=== PATIENT | female | born 1985 | race Caucasian/White ===

== ENCOUNTER 2016-05-13 13:52 | Emergency (ER) | payer OTHER ==
--- NOTE | 2016-05-13 14:20 | DIAGNOSTIC IMAGING REPORT ---
PROCEDURE: CT HEAD WITHOUT CONTRAST INDICATION: TRAUMA/INJURY TECHNIQUE: Axial CT images were acquired through the head. Coronal and sagittal reformations were created. COMPARISON: None. FINDINGS: No intracranial hemorrhage or extraaxial fluid collections. Ventricles are normal in size, shape and position. There is no mass, mass effect or midline shift. The de luna-white matter differentiation is normal. There is no edema. The calvarium is intact. There is some fluid in the ethmoid sinuses. The extracranial soft tissues and orbits are normal. IMPRESSION: 1. No CT evidence of acute intracranial process. 2. Findings discussed with Benjamin at 02:[address] scans at this facility use dose modulation, iterative reconstruction, and/or weight-based dosing when appropriate to reduce radiation dose to as low as reasonably achievable.
--- NOTE | 2016-05-13 15:42 | DIAGNOSTIC IMAGING REPORT ---
PROCEDURE: XR THORACIC SPINE 2 VIEWS INDICATION: TRAUMA/INJURY TECHNIQUE: Three views. COMPARISON: None. FINDINGS: Osseous structures and disc spaces are normal. No evidence of an acute process or fracture. IMPRESSION: 1. Negative thoracic spine.
--- NOTE | 2016-05-13 15:42 | DIAGNOSTIC IMAGING REPORT ---
PROCEDURE: XR LUMBAR SPINE 2 OR 3 VIEWS INDICATION: TRAUMA/INJURY TECHNIQUE: Three views. COMPARISON: None. FINDINGS: Osseous structures and disc spaces are normal. No evidence of an acute process or fracture. IMPRESSION: 1. Negative lumbar spine.
--- NOTE | 2016-05-13 15:43 | DIAGNOSTIC IMAGING REPORT ---
PROCEDURE: XR CERVICAL SPINE 2 OR 3 VIEW INDICATION: NECK PAIN TECHNIQUE: Three views. COMPARISON: None. FINDINGS: Osseous structures and disc spaces are normal. No evidence of an acute process or fracture. IMPRESSION: 1. Negative cervical spine.
--- NOTE | 2016-05-13 15:47 | DIAGNOSTIC IMAGING REPORT ---
PROCEDURE: XR PELVIS 3 OR MORE VIEWS INDICATION: TRAUMA/INJURY TECHNIQUE: Three views COMPARISON: None. FINDINGS: On the left there is a fracture of the superior pubic ramus and the inferior pubic ramus. The superior fracture is comminuted. IMPRESSION: 1. Left-sided pubic rami fractures
--- NOTE | 2016-05-13 16:31 | ED ORDER SUMMARY ---
..... Patient: GLADIS CHÁVEZ OrderSheet [facility] VisitID: [id number] [address] [place] [address] 30y, F Registration Date/Time: 05/13/2016 ORDER SHEET Weight: 54.4 kg (stated) Allergies: None GENERAL ORDERS: Cervical Spine 2 or 3V Urgent (14:00 05/13/2016 EKoroleva P.A.-C) (Ack 14:05 LTapper) (14:13 DMaziarka R.N.) Hip 2V Left w AP Pelvis Urgent (14:00 05/13/2016 EKoroleva P.A.-C) (Ack 14:05 LTapper) (14:13 DMaziarka R.N.) (Cancelled: Other14:44 PHutchinson DO) CT Head wo Cont Urgent (14:00 05/13/2016 EKoroleva P.A.-C) (Ack 14:05 LTapper) (14:14 DMaziarka R.N.) CBC w Diff Urgent (14:03 05/13/2016 EKoroleva P.A.-C) (Ack 14:05 LTapper) (14:06 KWilliams R.N.) CMP Urgent (14:03 05/13/2016 EKoroleva P.A.-C) (Ack 14:05 LTapper) (14:06 KWilliams R.N.) CPK Urgent (14:03 05/13/2016 EKoroleva P.A.-C) (Ack 14:05 LTapper) (14:06 KWilliams R.N.) Pelvis 3V or more Urgent (14:44 05/13/2016 PHutchinson DO) (Ack 14:53 LTapper) (15:44 DMaziarka R.N.) CT Pelvis w Cont (14:46 05/13/2016 EKoroleva P.A.-C) (Cancelled: Other14:47 EKoroleva P.A.-C) UA-Culture if indicated Urgent (14:51 05/13/2016 EKoroleva P.A.-C) (Ack 14:53 LTapper) (15:13 DMaziarka R.N.) CT Pelvis wo Cont Urgent (14:52 05/13/2016 EKoroleva P.A.-C) (Ack 14:53 LTapper) (15:44 DMaziarka R.N.) (Cancelled: Other16:31 EKoroleva P.A.-C) Lumbar Spine 2 or 3V Urgent (14:58 05/13/2016 EKoroleva P.A.-C) (Ack 15:01 LTapper) (15:44 DMaziarka R.N.) Thoracic Spine 2V Urgent (14:58 05/13/2016 EKoroleva P.A.-C) (Ack 15:01 LTapper) (15:44 DMaziarka R.N.) Urine Drug Screen Urgent (14:58 05/13/2016 EKoroleva P.A.-C) (Ack 15:01 LTapper) (15:13 DMaziarka R.N.) Ethyl Alcohol Urgent (14:58 05/13/2016 EKoroleva P.A.-C) (Ack 15:01 LTapper) (15:13 DMaziarka R.N.) Acetaminophen Level Urgent (14:58 05/13/2016 EKoroleva P.A.-C) (Ack 15:01 LTapper) (15:13 DMaziarka R.N.) Salicylate Level Urgent (14:58 05/13/2016 EKoroleva P.A.-C) (Ack 15:01 LTapper) (15:13 DMaziarka R.N.) Urine Urgent (14:59 05/13/2016 EKoroleva P.A.-C) (Ack 15:01 LTapper) (15:13 DMaziarka R.N.) EKG - ER Stat (15:35 05/13/2016 EKoroleva P.A.-C) (Ack 15:47 LTapper) (16:12 LTapper) Troponin-I Urgent (15:35 05/13/2016 EKoroleva P.A.-C) (15:44 DMaziarka R.N.) PT with INR Urgent (16:26 05/13/2016 EKoroleva P.A.-C) (16:40 DMaziarka R.N.) PTT Urgent (16:26 05/13/2016 EKoroleva P.A.-C) (16:40 DMaziarka R.N.) MEDICATION ORDERS: Phenergan IV 12.5 mg (HIGH ALERT MEDICATION, NOW) (14:03 05/13/2016 EKoroleva P.A.-C) (Ack 14:15 JBoardley R.N.) (14:36 DMaziarka R.N.) IV FLUIDS: Dilaudid IV 0.5 mg (HIGH ALERT MEDICATION, NOW) (14:02 05/13/2016 EKoroleva P.A.-C) (Ack 14:15 JBoardley R.N.) (14:35 DMaziarka R.N.) IV Saline Lock (14:03 05/13/2016 EKoroleva P.A.-C) (Ack 14:03 JBoardley R.N.) (14:03 JBoardley R.N.) Dilaudid IV 1 mg (HIGH ALERT MEDICATION, NOW) (14:54 05/13/2016 EKoroleva P.A.-C) (15:03 DMaziarka R.N.) IV NS : initial bolus 1000 mL (1000 mL/hr), then 1000 mL/hr for X1 (NOW); Quinton (15:34 05/13/2016 EKoroleva P.A.-C) (15:51 DMaziarka R.N.) KCl IV 20 meq/100mL (Run no faster than 10 units/hr, NOW) (15:34 05/13/2016 EKoroleva P.A.-C) (Ack 15:52 DMaziarka R.N.) (16:02 DMaziarka R.N.) Dilaudid IV 0.5 mg (HIGH ALERT MEDICATION, NOW) (17:04 05/13/2016 EKoroleva P.A.-C) (17:11 KWilliams R.N.) ORDER SHEET NOTES: [Electronically signed by Yodit AlexanderACuba-C (17:56 05/13/2016)] [Electronically signed by Britany Guan R.N. (18:05/13/2016)] [Electronically locked/signed by Britany Guan R.N. (18:05/13/2016)]
--- NOTE | 2016-05-13 16:31 | ED CLINICAL REPORT ---
Clinical Report - Physicians/Mid Levels [facility] [address] [place] [address] 05/13/2016 13:54 [id number] Time Seen: 14:09 May 13 2016. Arrived- By private vehicle. Historian- patient. HISTORY OF PRESENT ILLNESS Location of injuries- head and left hip. Chief Complaint: FALL. The injury occurred last night 12 hours [employer]. Occurred at home. Fell down many stairs while standing and landed on a carpeted surface (14 stairs). The patient complains of mild pain and moderate pain. The patient sustained a blow to the head. No neck pain or loss of consciousness. (sipped at the top of the stairs, fell down, backwards, hitting her head as well as sustaining injury to her left hip. Has been laying on couch after being picked up by her family member, placed on the couch and has been laying there for the last 12 hours. Injury to the left hip. Denies any abdominal or chest wall pain. Denies any back pain. Denies any paresthesias or loss of sensation. Denies any LOC. Pt does not recall event, Family rushed after hearing the fall and picked her up to the floor. NO known LOC by family members). REVIEW OF SYSTEMS No loss of vision, chest pain or laceration. She has had a headache. All systems otherwise negative, except as recorded above. SOCIAL HISTORY Smoker- current status unknown. Alcohol use. (extensive last night). History of drug use. ADDITIONAL NOTES The nursing notes have been reviewed. PHYSICAL EXAM Vital Signs: 05/13/2016 13:59 BP: 131/83. HR: 87. RR: 22. O2 saturation: 100%. Temp: 98.3 F. Pain level now: 01/07. Appearance: Alert. Anxious. Appears to be in pain. Patient in mild distress. No backboard or C-collar. Head: Head non-tender. No swelling of head. Eyes: Pupils equal, round and reactive to light. ENT: No hemotympanum. Neck: Non-tender. No vertebral tenderness. Posterior neck. CVS: Heart sounds normal. Respiratory: Chest wall. No tenderness. No laceration. Chest nontender. No chest wall injury. Abdomen: No visible injury but abdominal injury. No mass. No abdominal tenderness, rebound tenderness, distention or guarding. Back: No tenderness. ROM normal. No tenderness or vertebral point tenderness. Skin: Skin warm. Extremities: Normal inspection. No abrasions. Left hip: moderate tenderness located in the anterior aspect of the hip. The left leg is shortened. Limited ROM secondary to pain. No swelling, laceration, puncture wound or foreign body. Left thigh. No tenderness or swelling. Left knee. No foreign body. Gait: Gait not tested due to pain. She was unable to bear weight. Neuro: Chel Coma Scale: 15- eyes open spontaneously (4); best verbal response- oriented x 3 (5); best motor response- obeys commands (6). Oriented X 3. No alteration in mental status. LABS, X-RAYS, AND EKG EKG: EKG time: (1603). No acute process. No acute ischemia. Rate: 54. Bradycardia (54). Normal P waves. Normal HERMAN. Normal QRS complex. Normal axis. Normal ST and T waves. The study has been interpreted contemporaneously. The study has been independently viewed by me. The EKG appears to be a good tracing. C-Spine X-rays: (IMPRESSION: 1. Negative cervical spine. Electronically Final signed by:Brian Pickard MD 05/13/2016 3:47:14 PM). T-Spine X-rays: (IMPRESSION: 1. Negative thoracic spine. Electronically Final signed by:Brian Pickard MD 05/13/2016 3:46:19 PM). LS-Spine X-rays: (IMPRESSION: 1. Negative lumbar spine. Electronically Final signed by:Brian Pickard MD 05/13/2016 3:45:38 PM). Pelvis X-ray: (IMPRESSION: FINDINGS: On the left there is a fracture of the superior pubic ramus and the inferior pubic ramus. The superior fracture is comminuted. 1. Left-sided pubic rami fractures Electronically Final signed by:Brian Pickard MD 05/13/2016 3:50:52 PM). CT Head: (IMPRESSION: 1. No CT evidence of acute intracranial process. 2. Findings discussed with Benjamin at 02:[address] scans at this facility use dose modulation, iterative reconstruction, and/or weight-based dosing when appropriate to reduce radiation dose to as low as reasonably achievable. Electronically Final signed by:Brian Pickard MD 05/13/2016 2:23:35 PM). Laboratory Tests: UA-Culture if indicated: (HAIDER: 05/13/2016 15:13) ( [facility]29) Final results Test Result Flag Units (Reference) URINE COLOR YELLOW URINE APPEARANCE CLEAR URINE GLUCOSE NEGATIVE (NEGATIVE) URINE BILIRUBIN NEGATIVE (NEGATIVE) URINE KETONE 3+ (NEGATIVE) URINE SPECIFIC GRAVITY 1.015 (1.010-1.030) URINE PH 8.0 (5.0-8.0) URINE PROTEIN 1+ (NEGATIVE) URINE UROBILINOGEN 2.0 EU/dL (0.2-1.0) The urobilinogen reagent area may react with interferingsubstances known to react with Roger's reagent such asp-aminosalicylic acid and sulfonamides. Atypical colorreactions may be obtained in the presence of highconcentrations of p-aminobenzoic acid. The absence ofurobilinogen cannot be determined with this test. URINE NITRITE NEGATIVE (NEGATIVE) URINE BLOOD NEGATIVE (NEGATIVE) URINE LEUK ESTERASE NEGATIVE (NEGATIVE) URINE RBC NONE SEEN rbc/hpf (0-1) URINE WBC 3-5 wbc/hpf (0-1) URINE EPITHELIAL CELLS 0-1 EPI/hpf (0-5) URINE BACTERIA TRACE (<1+) (NONE SEEN) URINE COMMENT CULT NOT INDICATED URINE CULTURES ARE SET-UP BASED ON THE FOLLOWING CRITERIA:POSITIVE NITRITEPOSITIVE LEUKOCYTE ESTERASEGREATER THAN 10 WHITE BLOOD CELLSMODERATE (2+) OR GREATER BACTERIA Urine: (HAIDER: 05/13/2016 15:13) ( [facility] 05/13/2016 15:23) Final results Test Result Flag Units (Reference) URINE NEGATIVE CBC w Diff: (HAIDER: 05/13/2016 14:02) ( [facility]13[facility] 14:10) Final results Test Result Flag Units (Reference) WHITE BLOOD COUNT 8.3 K/uL (4.5-11.5) RED BLOOD COUNT 4.45 M/uL (4.00-5.20) HEMOGLOBIN 14.1 gm/dL (12.0-16.0) HEMATOCRIT 42.4 % (36.0-46.0) MEAN CELL VOLUME 95 fL (80-100) MEAN CORPUSCULAR HGB 32 pg (26-34) MEAN CORPUSCULAR HGB CONC 33 g/dL (31-37) RED CELL DISTRIBUTION WIDTH 13.8 % (11.6-14.8) PLATELET COUNT 206 K/uL (150-400) NEUTROPHIL % 69.0 % (50-75) LYMPH % 24.4 L % (25-40) MONO % 6.0 % (3-14) EOSINOPHIL % 0.2 % (0-4) BASOPHIL % 0.4 % (0-2) PT with INR: (HAIDER: 05/13/2016 14:02) ( [facility] 05/13/2016 16:40) Final results Test Result Flag Units (Reference) INR 1.1 (0.8-1.2) Low Intensity Therapy: INR 1.5-2.0 PT range 18.5-23.1Mod.Intensity Therapy: INR 2.0-3.0 PT range 23.1-31.5High Intensity Therapy: INR 2.5-3.5 PT range 27.4-35.5High Intensity Therapy 2: INR 3.0-4.0 PT range 31.5-39.3 APTT 25 SECONDS (24-34) Troponin-I: (HAIDER: 05/13/2016 15:39) ( [facility] 05/13/2016 15:41) Final results Test Result Flag Units (Reference) TROPONIN I <0.05 L ng/mL (0.00-1.5) TROPONIN REFERENCE RANGE:<0.1 NEGATIVE0.1-1.5 INDETERMINANT>1.5 POSITIVE Urine Drug Screen: (HAIDER: 05/13/2016 15:13) ( [facility] 05/13/2016 15:44) Final results Test Result Flag Units (Reference) AMPHETAMINE/METHAMPHETAMINE NEGATIVE (NEGATIVE) BARBITURATE NEGATIVE (NEGATIVE) BENZODIAZEPINE NEGATIVE (NEGATIVE) CANNABINOID POSITIVE H (NEGATIVE) COCAINE NEGATIVE (NEGATIVE) ECSTASY NEGATIVE (NEGATIVE) METHADONE NEGATIVE (NEGATIVE) OPIATE POSITIVE H (NEGATIVE) The urine drug screen is a qualitative screening test fordrug overdose and abuse. All screen results should beconsidered as presumptive.Drugs screened for are as follows:BenzodiazepinesCocaineAmphetamines/MetamphetaminesTHC (Tetrahydrocannabinol)OpiatesBarbituratesEcstasyMethadonePositive results are unconfirmed. For confirmation, notifythe lab for the specimen to be sent to the reference lab.All confirmations must be performed by a differentmethodology.The ingestion of natural herbal and plant productscontaining Ephedra/Ephedra metabolites can produce in urineone or more substances capable of cross reacting withamphetamine/methamphetamine immunoassays. These testsprovide a preliminary result only. A more specificalternative chemical method must be used to obtain aconfirmed analytical result. Salicylate Level: (HAIDER: 05/13/2016 14:02) ( [facility] 05/13/2016 15:36) Final results Test Result Flag Units (Reference) SALICYLATE <2.8 L mg/dL (2.8-20) Acetaminophen Level: (HAIDER: 05/13/2016 14:02) ( [facility] 05/13/2016 15:14) Final results Test Result Flag Units (Reference) ACETAMINOPHEN < 10 L ug/mL (10-30) ETHYL ALCOHOL <3 L mg/dL (3-10) CMP: (HAIDER: 05/13/2016 14:02) ( [facility] 05/13/2016 15:27) Final results Test Result Flag Units (Reference) GLUCOSE 101 mg/dL (70-110) BUN 10 mg/dL (7-18) CREATININE 1.0 mg/dL (0.6-1.3) Estimated GFR >60 mL/min Estimated GFR- >60 mL/min Note: Persistent reduction over 3 months in eGFR<60 mL/min/1.73 m2 defines CKD. Patients with eGFR values>=60 mL/min/1.73 m2 may also have CKD if evidence ofpersistent proteinuria. Additional information may be foundat www.kidney.org. SODIUM 141 mmol/L (136-145) POTASSIUM 3.0 L mmol/L (3.5-5.1) CHLORIDE 102 mmol/L (98-107) CARBON DIOXIDE 24 mmol/L (21-32) CALCIUM 9.0 mg/dL (8.5-10.1) TOTAL PROTEIN 7.7 g/dL (6.4-8.2) ALBUMIN 4.2 g/dL (3.3-5.0) BILIRUBIN, TOTAL 1.4 H mg/dL (0.0-1.0) ALKALINE PHOSPHATASE 54 U/L (46-116) AST (SGOT) 32 U/L (15-37) ALT (SGPT) 37 U/L (12-78) CPK 512 H U/L (24-260) CK-MB 3.5 H ng/mL (0.5-3.2) %CKMB 0.7 % (0.0-4.0) . PROGRESS AND PROCEDURES Course of Care: Discussed case with DR. Dailey ER, who recommends more images, and ortho consult. [address] Chappell (call center analyst ortho) who recommends ua/ c transfer or higher level of care if complications Pt with maier started, has received 0.5 mg dilauidid initially, then subsequent 1.mg iv dilauidid. phenergan iv 12.5 mg Will await further images CT in use unable to obtain pelvis ct. Abd soft and non tender and pt stable with pain meds. Discussed with DR. Ugalde ([facility]) will transferr . 1705 additional 0.5 mg iv Received 20 meq of IV KCL. 05/13/2016 17:00 BP: 112/58. HR: 84. RR: 20. O2 saturation: 100%. 05/13/2016 15:15 BP: 129/76. HR: 58. RR: 14. O2 saturation: 98%. Patient is stable. Patient/family counseled. Disposition: Transferred. CLINICAL IMPRESSION Pelvic FX Left upper/lower Rami Fall down 14 stairs ETOH Hypokalemia. (Electronically signed by Yodit Alexander P.A.-C 05/13/2016 17:56)
--- NOTE | 2016-05-13 16:31 | ED NURSING NOTES ---
Clinical Report - Nurses [address] [place] [address] 05/13/2016 13:54 [id number] TRI[facility] Triage time 13:54. Acuity: LEVEL 2. Chief Complaint: FALL. 13:55 05/13/16. 13:55 05/13/16. Alert. ( Pt fell down 14 starts this AM at 0100.). SEPSIS SCREEN: Sepsis Screen. Negative (no infection suspected/documented). CHEL COMA SCORE: Chel Coma Scale: 15- eyes open spontaneously (4); best verbal response- oriented x 4 (5); best motor response- obeys commands (6). --14:02 Christian Colmenares R.N. 13:59 05/13/16. BP: 131/83 taken on the left arm, while lying. HR: 87. RR: 22. O2 saturation: 100% on room air. Temp: 98.3 F (oral). Pain level now: 01/07. --14:02 Christian Colmenares R.N. Weight: 54.4 kg stated. Height/Length: 64 inches Per Patient. BMI: 20.6. --13:54 Christian Colmenares R.N. Medications None. --13:57 Christian Colmenares R.N. Medication/allergy information source: the patient. --14:02 Christian Colmenares R.N. Allergies None. --13:57 Christian Colmenares R.N. History Arrived by private vehicle. Historian: patient. Accompanied by family. Primary physician (NONE). 13:55 05/13/16. Location of injuries: left hip. This occurred last night (0100). Occurred at home. No loss of consciousness. No headache, neck pain, back pain or numbness. Treatment STOREROOM SUPERVISOR: None. Trauma activation: Modified Trauma Activation. Pre-hospital notification of patient arrival was not received. PAST MEDICAL HX: Immunizations: up-to-date and has received tetanus within 5 years. Last normal menstrual period- Irregular-3 years ago. Tetanus immunization status is not up-to-date. SURGERY HX: No history of previous surgery. SOCIAL HX: Current every day light tobacco smoker (cigarette)- less than 1/2 a pack per day. History of heavy drug use: marijuana. (last week). No alcohol use. No infectious disease exposure. ABUSE ASSESSMENT: No report of abuse. NUTRITIONAL RISK ASSESSMENT: The nutritional risk assessment revealed no deficiencies. FUNCTIONAL ASSESSMENT: Functional assessment: no impairments noted. LEARNING NEEDS ASSESSMENT: The learning needs assessment revealed no barriers. FALL RISK ASSESSMENT: Fall risk assessment completed. Risk factors identified include severe pain, postural hypotension and patient history of fall. Fall interventions initiated. Patient placed on stretcher. Brakes on Bed in low position. Patient visible from nurses' station. Family at bedside. Call light in reach of patient. Instructed not to get up without assistance. SKIN INTEGRITY ASSESSMENT: Skin integrity risk assessment completed. No skin integrity risk identified. --14:02 Christain Colmenares R.N. PROBLEMS: no known problems. ADDITIONAL SURGERIES: no known surgeries. Assessment 13:55 05/13/16. --14:02 Christian Colmenares R.N. Interventions 13:55 05/13/16. 13:55 05/13/16. ID and allergy band on patient. To treatment room. --14:02 Christian Colmenares R.N. PHYSICAL ASSESSMENT To room via wheelchair. GENERAL / NEURO / PSYCH: Alert. Oriented X 4. Appears in pain. RESPIRATORY: Respirations not labored. CVS: Capillary refill less than 2 seconds. EXTREMITIES: Left hip: tenderness. SKIN: Skin is warm and dry. --13:57 Christian Colmenares R.N. 14:03 05/13/16. CVS: ( postive 2+ pulses bilat LE, DP, PT). Capillary refill less than 2 seconds. --14:03 Christian Colmenares R.N. NURSING PROGRESS NOTES 13:58 05/13/16. The plan of care for this patient has been created. Cold pack applied. Extremity elevated. Patient gowned. Reassurance given. Two patient identifiers checked. Call light placed in reach. Side rails up x 2. Bed placed in lowest position. Brakes of bed on. Brakes of chair on. --13:58 Christian Colmenares R.N. 13:58 05/13/16. Patient ready for evaluation- chart flagged and notification provided. --13:58 Christian Colmenares R.N. 14:03 05/13/2016 Site #1 started via IV in the right forearm with an 18g angiocath, with aseptic technique and good blood return; one attempt. Blood drawn: rainbow set. Labeled in the presence of the patient and sent to the lab. Saline lock flushed with 10 mL saline. --14:03 Christian Colmenares R.N. 14:04 05/13/16. Patient transported to CT by stretcher with tech. --14:04 Christian Colmenares R.N. 14:30 05/13/2016 Dilaudid (HYDROmorphone HCl PF) IVP 0.5 mg given over 2 minute(s) via site #1. Allergies verified, confirmed 5 rights and sedative warning given to the patient. IV patency established. IV site checked: no pain, redness, or swelling. IV flushed thoroughly pre- and post-medication administration. IVP given by RN. --14:35 Britany Guan R.N. 14:36 05/13/2016 PHENERGAN (Promethazine HCl) IVP 12.5 mg given over 2 minute(s) via site #1. Allergies verified and confirmed 5 rights. IV patency established. IV site checked: no pain, redness, or swelling. IV flushed thoroughly pre- and post-medication administration. IVP given by RN. --14:36 Britany Guan R.N. Patient transported to radiology and CT. (1410). --14:37 Britany Guan R.N. Overall patient status is the same. --14:37 Britany Guan R.N. Patient returned from radiology by stretcher with tech. --14:50 Britany Guan R.N. Cardiac rhythm: normal sinus rhythm. GENERAL / NEURO / PSYCH: Alert. Oriented X 4. RESPIRATORY: No respiratory distress. --14:51 Britany Guan R.N. 14:50 05/13/16. BP: 114/66. HR: 60. RR: 20. O2 saturation: 99%. Pain level now 9/10. --14:51 Britany Guan R.N. 15:02 05/13/2016 Dilaudid (HYDROmorphone HCl PF) IVP 1 mg given over 2 minute(s) via site #1. Allergies verified, confirmed 5 rights and sedative warning given to the patient. IV patency established. IV site checked: no pain, redness, or swelling. IV flushed thoroughly pre- and post-medication administration. IVP given by RN. --15:03 Britany Guan R.N. 14 fr urinary catheter. Reason for indwelling catheter: trauma. During procedure hand hygiene observed and sterile equipment and aseptic technique used. Return of less than 50 mL yellow-colored clear urine; odor is normal; attached to bedside drainage bag positioned below the bladder and secured with velcro. She tolerated procedure well. Weir catheter not placed. Call light placed in reach. Side rails up x 2. Bed placed in lowest position. --15:15 Britany Guan R.N. 15:15 05/13/16. BP: 129/76. HR: 58. RR: 14. O2 saturation: 98%. Pain level now 4/10. --15:17 Britany Guan R.N. Cardiac rhythm: normal sinus rhythm. --15:17 Britany Guan R.N. Patient transported to radiology by stretcher with tech. --15:29 Britany Guan R.N. 15:51 05/13/2016 Started bag #1 1000 mL IV Fluids IV NS (Saline); bolus of 1000 mL wide open then at 1000 mL/hr over 1 hour(s) via site #1 via IV pump. Allergies verified and confirmed 5 rights. IV patency established. IV site checked: no pain, redness, or swelling. IV flushed thoroughly pre- and post-medication administration. --15:51 Britany Guan R.N. 16:02 05/13/2016 Started 20 meq of KCL (Potassium Chloride) IVPB in bag #1 100 mL; at 50 mL/hr over 2 hour(s) via site #1 via IV pump. Allergies verified and confirmed 5 rights. IV patency established. IV site checked: no pain, redness, or swelling. IV flushed thoroughly pre- and post-medication administration. --16:02 Britany Guan R.N. 16:27 05/13/2016 IV Fluids IV NS Bag Change: bag #1 completed. Total amount infused: 1000. STARTED bag #2 (1000 mL) at 1000 mL/hr via IV pump. Confirmed 5 rights. IV patency established. IV site checked: no pain, redness, or swelling. IV flushed thoroughly. --16:27 Britany Guan R.N. EKG time: (16:03). EKG was performed by a tech and shown to the ED physician. --16:37 Debi Sotomayor 16:53 05/13/2016 Site #2 started via IV in the left hand with an 18g angiocath using 1% intra-dermal lidocaine, with aseptic technique and good blood return; one attempt. Saline lock flushed with 10 mL saline. --16:53 Britany Guan R.N. 17:00 05/13/16. Cardiac rhythm: normal sinus rhythm. --17:00 Guanako Quiñones R.N. 17:00 05/13/16. BP: 112/58. HR: 84. RR: 20. O2 saturation: 100%. Pain level now 610. --17:00 Guanako Quiñones R.N. 17:08 05/13/2016 Dilaudid (HYDROmorphone HCl PF) IVP 0.5 mg given over 2 minute(s) via site #2. Allergies verified, confirmed 5 rights and sedative warning given to the patient. IV patency established. IV site checked: no pain, redness, or swelling. IV flushed thoroughly pre- and post-medication administration. IVP given by RN. --17:11 Guanako Quiñones R.N. DISPOSITION / DISCHARGE Departure time: 18:11. Condition at departure: stable. Transferred to [facility]. --18:11 Britany Guan R.N. 18:10 05/13/16. BP: 108/58. HR: 68. RR: 14. O2 saturation: 100%. Pain level now 3/10. --18:11 Britany Guan R.N. Locked/Released at 05/13/2016 18:22 by Britany Guan R.N.
--- NOTE | 2016-05-13 16:31 | ED CLINICAL REPORT ---
Clinical Report - Physicians/Mid Levels [facility] [address] [place] [address] 05/13/2016 13:54 [id number] Time Seen: 14:09 May 13 2016. Arrived- By private vehicle. Historian- patient. HISTORY OF PRESENT ILLNESS Location of injuries- head and left hip. Chief Complaint: FALL. The injury occurred last night 12 hours CERT OCCUPATIONAL THERAPY ASST. Occurred at home. Fell down many stairs while standing and landed on a carpeted surface (14 stairs). The patient complains of mild pain and moderate pain. The patient sustained a blow to the head. No neck pain or loss of consciousness. (sipped at the top of the stairs, fell down, backwards, hitting her head as well as sustaining injury to her left hip. Has been laying on couch after being picked up by her family member, placed on the couch and has been laying there for the last 12 hours. Injury to the left hip. Denies any abdominal or chest wall pain. Denies any back pain. Denies any paresthesias or loss of sensation. Denies any LOC. Pt does not recall event, Family rushed after hearing the fall and picked her up to the floor. NO known LOC by family members). REVIEW OF SYSTEMS No loss of vision, chest pain or laceration. She has had a headache. All systems otherwise negative, except as recorded above. SOCIAL HISTORY Smoker- current status unknown. Alcohol use. (extensive last night). History of drug use. ADDITIONAL NOTES The nursing notes have been reviewed. PHYSICAL EXAM Vital Signs: 05/13/2016 13:59 BP: 131/83. HR: 87. RR: 22. O2 saturation: 100%. Temp: 98.3 F. Pain level now: 01/07. Appearance: Alert. Anxious. Appears to be in pain. Patient in mild distress. No backboard or C-collar. Head: Head non-tender. No swelling of head. Eyes: Pupils equal, round and reactive to light. ENT: No hemotympanum. Neck: Non-tender. No vertebral tenderness. Posterior neck. CVS: Heart sounds normal. Respiratory: Chest wall. No tenderness. No laceration. Chest nontender. No chest wall injury. Abdomen: No visible injury but abdominal injury. No mass. No abdominal tenderness, rebound tenderness, distention or guarding. Back: No tenderness. ROM normal. No tenderness or vertebral point tenderness. Skin: Skin warm. Extremities: Normal inspection. No abrasions. Left hip: moderate tenderness located in the anterior aspect of the hip. The left leg is shortened. Limited ROM secondary to pain. No swelling, laceration, puncture wound or foreign body. Left thigh. No tenderness or swelling. Left knee. No foreign body. Gait: Gait not tested due to pain. She was unable to bear weight. Neuro: Chel Coma Scale: 15- eyes open spontaneously (4); best verbal response- oriented x 3 (5); best motor response- obeys commands (6). Oriented X 3. No alteration in mental status. LABS, X-RAYS, AND EKG EKG: EKG time: (1603). No acute process. No acute ischemia. Rate: 54. Bradycardia (54). Normal P waves. Normal HERMAN. Normal QRS complex. Normal axis. Normal ST and T waves. The study has been interpreted contemporaneously. The study has been independently viewed by me. The EKG appears to be a good tracing. C-Spine X-rays: (IMPRESSION: 1. Negative cervical spine. Electronically Final signed by:Brian Pickard MD 05/13/2016 3:47:14 PM). T-Spine X-rays: (IMPRESSION: 1. Negative thoracic spine. Electronically Final signed by:Brian Pickard MD 05/13/2016 3:46:19 PM). LS-Spine X-rays: (IMPRESSION: 1. Negative lumbar spine. Electronically Final signed by:Brian Pickard MD 05/13/2016 3:45:38 PM). Pelvis X-ray: (IMPRESSION: FINDINGS: On the left there is a fracture of the superior pubic ramus and the inferior pubic ramus. The superior fracture is comminuted. 1. Left-sided pubic rami fractures Electronically Final signed by:Brian Pickard MD 05/13/2016 3:50:52 PM). CT Head: (IMPRESSION: 1. No CT evidence of acute intracranial process. 2. Findings discussed with Benjamin at 02:[address] scans at this facility use dose modulation, iterative reconstruction, and/or weight-based dosing when appropriate to reduce radiation dose to as low as reasonably achievable. Electronically Final signed by:Brian Pickard MD 05/13/2016 2:23:35 PM). Laboratory Tests: UA-Culture if indicated: (HAIDER: 05/13/2016 15:13) ( [facility] Final results Test Result Flag Units (Reference) URINE COLOR YELLOW URINE APPEARANCE CLEAR URINE GLUCOSE NEGATIVE (NEGATIVE) URINE BILIRUBIN NEGATIVE (NEGATIVE) URINE KETONE 3+ (NEGATIVE) URINE SPECIFIC GRAVITY 1.015 (1.010-1.030) URINE PH 8.0 (5.0-8.0) URINE PROTEIN 1+ (NEGATIVE) URINE UROBILINOGEN 2.0 EU/dL (0.2-1.0) The urobilinogen reagent area may react with interferingsubstances known to react with Roger's reagent such asp-aminosalicylic acid and sulfonamides. Atypical colorreactions may be obtained in the presence of highconcentrations of p-aminobenzoic acid. The absence ofurobilinogen cannot be determined with this test. URINE NITRITE NEGATIVE (NEGATIVE) URINE BLOOD NEGATIVE (NEGATIVE) URINE LEUK ESTERASE NEGATIVE (NEGATIVE) URINE RBC NONE SEEN rbc/hpf (0-1) URINE WBC 3-5 wbc/hpf (0-1) URINE EPITHELIAL CELLS 0-1 EPI/hpf (0-5) URINE BACTERIA TRACE (<1+) (NONE SEEN) URINE COMMENT CULT NOT INDICATED URINE CULTURES ARE SET-UP BASED ON THE FOLLOWING CRITERIA:POSITIVE NITRITEPOSITIVE LEUKOCYTE ESTERASEGREATER THAN 10 WHITE BLOOD CELLSMODERATE (2+) OR GREATER BACTERIA Urine: (HAIDER: 05/13/2016 15:13) ( [facility] 05/13/2016 15:23) Final results Test Result Flag Units (Reference) URINE NEGATIVE CBC w Diff: (HAIDER: 05/13/2016 14:02) ( [facility] [place] 14:10) Final results Test Result Flag Units (Reference) WHITE BLOOD COUNT 8.3 K/uL (4.5-11.5) RED BLOOD COUNT 4.45 M/uL (4.00-5.20) HEMOGLOBIN 14.1 gm/dL (12.0-16.0) HEMATOCRIT 42.4 % (36.0-46.0) MEAN CELL VOLUME 95 fL (80-100) MEAN CORPUSCULAR HGB 32 pg (26-34) MEAN CORPUSCULAR HGB CONC 33 g/dL (31-37) RED CELL DISTRIBUTION WIDTH 13.8 % (11.6-14.8) PLATELET COUNT 206 K/uL (150-400) NEUTROPHIL % 69.0 % (50-75) LYMPH % 24.4 L % (25-40) MONO % 6.0 % (3-14) EOSINOPHIL % 0.2 % (0-4) BASOPHIL % 0.4 % (0-2) PT with INR: (HAIDER: 05/13/2016 14:02) ( [facility] 05/13/2016 16:40) Final results Test Result Flag Units (Reference) INR 1.1 (0.8-1.2) Low Intensity Therapy: INR 1.5-2.0 PT range 18.5-23.1Mod.Intensity Therapy: INR 2.0-3.0 PT range 23.1-31.5High Intensity Therapy: INR 2.5-3.5 PT range 27.4-35.5High Intensity Therapy 2: INR 3.0-4.0 PT range 31.5-39.3 APTT 25 SECONDS (24-34) Troponin-I: (HAIDER: 05/13/2016 15:39) ( [facility] 05/13/2016 15:41) Final results Test Result Flag Units (Reference) TROPONIN I <0.05 L ng/mL (0.00-1.5) TROPONIN REFERENCE RANGE:<0.1 NEGATIVE0.1-1.5 INDETERMINANT>1.5 POSITIVE Urine Drug Screen: (HAIDER: 05/13/2016 15:13) ( [facility] 05/13/2016 15:44) Final results Test Result Flag Units (Reference) AMPHETAMINE/METHAMPHETAMINE NEGATIVE (NEGATIVE) BARBITURATE NEGATIVE (NEGATIVE) BENZODIAZEPINE NEGATIVE (NEGATIVE) CANNABINOID POSITIVE H (NEGATIVE) COCAINE NEGATIVE (NEGATIVE) ECSTASY NEGATIVE (NEGATIVE) METHADONE NEGATIVE (NEGATIVE) OPIATE POSITIVE H (NEGATIVE) The urine drug screen is a qualitative screening test fordrug overdose and abuse. All screen results should beconsidered as presumptive.Drugs screened for are as follows:BenzodiazepinesCocaineAmphetamines/MetamphetaminesTHC (Tetrahydrocannabinol)OpiatesBarbituratesEcstasyMethadonePositive results are unconfirmed. For confirmation, notifythe lab for the specimen to be sent to the reference lab.All confirmations must be performed by a differentmethodology.The ingestion of natural herbal and plant productscontaining Ephedra/Ephedra metabolites can produce in urineone or more substances capable of cross reacting withamphetamine/methamphetamine immunoassays. These testsprovide a preliminary result only. A more specificalternative chemical method must be used to obtain aconfirmed analytical result. Salicylate Level: (HAIDER: 05/13/2016 14:02) ( [facility] 05/13/2016 15:36) Final results Test Result Flag Units (Reference) SALICYLATE <2.8 L mg/dL (2.8-20) Acetaminophen Level: (HAIDER: 05/13/2016 14:02) ( [facility] 05/13/2016 15:14) Final results Test Result Flag Units (Reference) ACETAMINOPHEN < 10 L ug/mL (10-30) ETHYL ALCOHOL <3 L mg/dL (3-10) CMP: (HAIDER: 05/13/2016 14:02) ( [facility] 05/13/2016 15:27) Final results Test Result Flag Units (Reference) GLUCOSE 101 mg/dL (70-110) BUN 10 mg/dL (7-18) CREATININE 1.0 mg/dL (0.6-1.3) Estimated GFR >60 mL/min Estimated GFR- >60 mL/min Note: Persistent reduction over 3 months in eGFR<60 mL/min/1.73 m2 defines CKD. Patients with eGFR values>=60 mL/min/1.73 m2 may also have CKD if evidence ofpersistent proteinuria. Additional information may be foundat www.kidney.org. SODIUM 141 mmol/L (136-145) POTASSIUM 3.0 L mmol/L (3.5-5.1) CHLORIDE 102 mmol/L (98-107) CARBON DIOXIDE 24 mmol/L (21-32) CALCIUM 9.0 mg/dL (8.5-10.1) TOTAL PROTEIN 7.7 g/dL (6.4-8.2) ALBUMIN 4.2 g/dL (3.3-5.0) BILIRUBIN, TOTAL 1.4 H mg/dL (0.0-1.0) ALKALINE PHOSPHATASE 54 U/L (46-116) AST (SGOT) 32 U/L (15-37) ALT (SGPT) 37 U/L (12-78) CPK 512 H U/L (24-260) CK-MB 3.5 H ng/mL (0.5-3.2) %CKMB 0.7 % (0.0-4.0) . PROGRESS AND PROCEDURES Course of Care: Discussed case with DR. Dailey ER, who recommends more images, and ortho consult. [address] Chappell ([employer] ortho) who recommends ua/ c transfer or higher level of care if complications Pt with maier started, has received 0.5 mg dilauidid initially, then subsequent 1.mg iv dilauidid. phenergan iv 12.5 mg Will await further images CT in use unable to obtain pelvis ct. Abd soft and non tender and pt stable with pain meds. Discussed with DR. Ugalde ([facility] will transferr . 1705 additional 0.5 mg iv Received 20 meq of IV KCL. 05/13/2016 17:00 BP: 112/58. HR: 84. RR: 20. O2 saturation: 100%. 05/13/2016 15:15 BP: 129/76. HR: 58. RR: 14. O2 saturation: 98%. Patient is stable. Patient/family counseled. Disposition: Transferred. CLINICAL IMPRESSION Pelvic FX Left upper/lower Rami Fall down 14 stairs ETOH Hypokalemia. (Electronically signed by Yodit Alexander P.A.-C 05/13/2016 17:56)
--- NOTE | 2016-05-13 16:31 | ED ORDER SUMMARY ---
..... Patient: GLADIS CHÁVEZ OrderSheet [facility] VisitID: [id number] [address] [place] [address] 30y, F Registration Date/Time: 05/13/2016 ORDER SHEET Weight: 54.4 kg (stated) Allergies: None GENERAL ORDERS: Cervical Spine 2 or 3V Urgent (14:00 05/13/2016 EKoroleva P.A.-C) (Ack 14:05 LTapper) (14:13 DMaziarka R.N.) Hip 2V Left w AP Pelvis Urgent (14:00 05/13/2016 EKoroleva P.A.-C) (Ack 14:05 LTapper) (14:13 DMaziarka R.N.) (Cancelled: Other14:44 PHutchinson DO) CT Head wo Cont Urgent (14:00 05/13/2016 EKoroleva P.A.-C) (Ack 14:05 LTapper) (14:14 DMaziarka R.N.) CBC w Diff Urgent (14:03 05/13/2016 EKoroleva P.A.-C) (Ack 14:05 LTapper) (14:06 KWilliams R.N.) CMP Urgent (14:03 05/13/2016 EKoroleva P.A.-C) (Ack 14:05 LTapper) (14:06 KWilliams R.N.) CPK Urgent (14:03 05/13/2016 EKoroleva P.A.-C) (Ack 14:05 LTapper) (14:06 KWilliams R.N.) Pelvis 3V or more Urgent (14:44 05/13/2016 PHutchinson DO) (Ack 14:53 LTapper) (15:44 DMaziarka R.N.) CT Pelvis w Cont (14:46 05/13/2016 EKoroleva P.A.-C) (Cancelled: Other14:47 EKoroleva P.A.-C) UA-Culture if indicated Urgent (14:51 05/13/2016 EKoroleva P.A.-C) (Ack 14:53 LTapper) (15:13 DMaziarka R.N.) CT Pelvis wo Cont Urgent (14:52 05/13/2016 EKoroleva P.A.-C) (Ack 14:53 LTapper) (15:44 DMaziarka R.N.) (Cancelled: Other16:31 EKoroleva P.A.-C) Lumbar Spine 2 or 3V Urgent (14:58 05/13/2016 EKoroleva P.A.-C) (Ack 15:01 LTapper) (15:44 DMaziarka R.N.) Thoracic Spine 2V Urgent (14:58 05/13/2016 EKoroleva P.A.-C) (Ack 15:01 LTapper) (15:44 DMaziarka R.N.) Urine Drug Screen Urgent (14:58 05/13/2016 EKoroleva P.A.-C) (Ack 15:01 LTapper) (15:13 DMaziarka R.N.) Ethyl Alcohol Urgent (14:58 05/13/2016 EKoroleva P.A.-C) (Ack 15:01 LTapper) (15:13 DMaziarka R.N.) Acetaminophen Level Urgent (14:58 05/13/2016 EKoroleva P.A.-C) (Ack 15:01 LTapper) (15:13 DMaziarka R.N.) Salicylate Level Urgent (14:58 05/13/2016 EKoroleva P.A.-C) (Ack 15:01 LTapper) (15:13 DMaziarka R.N.) Urine Urgent (14:59 05/13/2016 EKoroleva P.A.-C) (Ack 15:01 LTapper) (15:13 DMaziarka R.N.) EKG - ER Stat (15:35 05/13/2016 EKoroleva P.A.-C) (Ack 15:47 LTapper) (16:12 LTapper) Troponin-I Urgent (15:35 05/13/2016 EKoroleva P.A.-C) (15:44 DMaziarka R.N.) PT with INR Urgent (16:26 05/13/2016 EKoroleva P.A.-C) (16:40 DMaziarka R.N.) PTT Urgent (16:26 05/13/2016 EKoroleva P.A.-C) (16:40 DMaziarka R.N.) MEDICATION ORDERS: Phenergan IV 12.5 mg (HIGH ALERT MEDICATION, NOW) (14:03 05/13/2016 EKoroleva P.A.-C) (Ack 14:15 JBoardley R.N.) (14:36 DMaziarka R.N.) IV FLUIDS: Dilaudid IV 0.5 mg (HIGH ALERT MEDICATION, NOW) (14:02 05/13/2016 EKoroleva P.A.-C) (Ack 14:15 JBoardley R.N.) (14:35 DMaziarka R.N.) IV Saline Lock (14:03 05/13/2016 EKoroleva P.A.-C) (Ack 14:03 JBoardley R.N.) (14:03 JBoardley R.N.) Dilaudid IV 1 mg (HIGH ALERT MEDICATION, NOW) (14:54 05/13/2016 EKoroleva P.A.-C) (15:03 DMaziarka R.N.) IV NS : initial bolus 1000 mL (1000 mL/hr), then 1000 mL/hr for X1 (NOW); [place] (15:34 05/13/2016 EKoroleva P.A.-C) (15:51 DMaziarka R.N.) KCl IV 20 meq/100mL (Run no faster than 10 units/hr, NOW) (15:34 05/13/2016 EKoroleva P.A.-C) (Ack 15:52 DMaziarka R.N.) (16:02 DMaziarka R.N.) Dilaudid IV 0.5 mg (HIGH ALERT MEDICATION, NOW) (17:04 05/13/2016 EKoroleva P.A.-C) (17:11 KWilliams R.N.) ORDER SHEET NOTES: [Electronically signed by Yodit AleaxnderACuba-C (17:56 05/13/2016)] [Electronically signed by Britany Guan R.N. (18:05/13/2016)] [Electronically locked/signed by Britany Guan R.N. (18:05/13/2016)]
--- NOTE | 2016-05-13 18:23 | ED MAR SUMMARY ---
..... Medication Administration Record [facility] [address] [place] [address] Patient: GLADIS CHÁVEZ Visit ID: [id number] 30y, F Weight: 54.4 kg Height/Length: 64 in BMI: 20.6 ALLERGIES: None Given 14:30 05/13/2016 Britany Guan R.N. Medication Administered: DILAUDID [IVP] (HYDROMORPHONE HCL PF), Dose: 0.5 mg IVP over 2 minute(s), Site: #1 right forearm. Medication Ordered: Dilaudid IV 0.5 mg (HIGH ALERT MEDICATION, NOW). Given 14:36 05/13/2016 Britany Guan R.N. Medication Administered: PHENERGAN [IVP] (PROMETHAZINE HCL), Dose: 12.5 mg IVP over 2 minute(s), Site: #1 right forearm. Medication Ordered: Phenergan IV 12.5 mg (HIGH ALERT MEDICATION, NOW). Given 15:02 05/13/2016 Britany Guan R.N. Medication Administered: DILAUDID [IVP] (HYDROMORPHONE HCL PF), Dose: 1 mg IVP over 2 minute(s), Site: #1 right forearm. Medication Ordered: Dilaudid IV 1 mg (HIGH ALERT MEDICATION, NOW). Start 15:51 05/13/2016 Britany Guan R.N. Medication Administered: IV NS (SALINE), Dose: IV Fluids over 1 hour(s), Rate: 1000 mL/hr, Bolus: 1000 mL wide open, Dispensed: 1000 mL bag, Site: #1 right forearm. Medication Ordered: IV NS : initial bolus 1000 mL (1000 mL/hr), then 1000 mL/hr for X1 (NOW); [place]. Start 16:02 05/13/2016 Britany Guan R.N. Medication Administered: KCL [IVPB] (POTASSIUM CHLORIDE), Dose: 20 meq IVPB over 2 hour(s), Rate: 50 mL/hr, Dispensed: 100 mL bag, Site: #1 right forearm. Medication Ordered: KCl IV 20 meq/100mL (Run no faster than 10 units/hr, NOW). Given 17:08 05/13/2016 Guanako Quiñones R.N. Medication Administered: DILAUDID [IVP] (HYDROMORPHONE HCL PF), Dose: 0.5 mg IVP over 2 minute(s), Site: #2 left hand. Medication Ordered: Dilaudid IV 0.5 mg (HIGH ALERT MEDICATION, NOW).
--- NOTE | 2016-05-13 18:23 | ED MAR SUMMARY ---
..... Medication Administration Record [facility] [address] [place] [address] Patient: GLADIS CHÁVEZ Visit ID: [id number] 30y, F Weight: 54.4 kg Height/Length: 64 in BMI: 20.6 ALLERGIES: None Given 14:30 05/13/2016 Britany Guan R.N. Medication Administered: DILAUDID [IVP] (HYDROMORPHONE HCL PF), Dose: 0.5 mg IVP over 2 minute(s), Site: #1 right forearm. Medication Ordered: Dilaudid IV 0.5 mg (HIGH ALERT MEDICATION, NOW). Given 14:36 05/13/2016 Britany Guan R.N. Medication Administered: PHENERGAN [IVP] (PROMETHAZINE HCL), Dose: 12.5 mg IVP over 2 minute(s), Site: #1 right forearm. Medication Ordered: Phenergan IV 12.5 mg (HIGH ALERT MEDICATION, NOW). Given 15:02 05/13/2016 Britany Guan R.N. Medication Administered: DILAUDID [IVP] (HYDROMORPHONE HCL PF), Dose: 1 mg IVP over 2 minute(s), Site: #1 right forearm. Medication Ordered: Dilaudid IV 1 mg (HIGH ALERT MEDICATION, NOW). Start 15:51 05/13/2016 Britany Guan R.N. Medication Administered: IV NS (SALINE), Dose: IV Fluids over 1 hour(s), Rate: 1000 mL/hr, Bolus: 1000 mL wide open, Dispensed: 1000 mL bag, Site: #1 right forearm. Medication Ordered: IV NS : initial bolus 1000 mL (1000 mL/hr), then 1000 mL/hr for X1 (NOW); [place]. Start 16:02 05/13/2016 Britany Guan R.N. Medication Administered: KCL [IVPB] (POTASSIUM CHLORIDE), Dose: 20 meq IVPB over 2 hour(s), Rate: 50 mL/hr, Dispensed: 100 mL bag, Site: #1 right forearm. Medication Ordered: KCl IV 20 meq/100mL (Run no faster than 10 units/hr, NOW). Given 17:08 05/13/2016 Guanako Quiñones R.N. Medication Administered: DILAUDID [IVP] (HYDROMORPHONE HCL PF), Dose: 0.5 mg IVP over 2 minute(s), Site: #2 left hand. Medication Ordered: Dilaudid IV 0.5 mg (HIGH ALERT MEDICATION, NOW).
--- NOTE | 2016-05-13 18:23 | ED MED RECONCILIATION SUMMARY ---
Patient: GLADIS CHÁVEZ Medication Reconciliation Report [facility] VisitID: [id number] [address] [place] [place] [address] 30y, F Registration Date/Time: 05/13/2016 Weight: 54.4 kg Height/Length: 64 in. BMI: 20.6 ALLERGIES: None The patient's Home Medications are listed below: NONE. The source(s) of the original Home Medication information: patient The following Medications were given to the patient in the Emergency Department: Dilaudid [IVP] IVP 0.5 mg, administered: 05/13/2016 2:30:00 PM PHENERGAN [IVP] IVP 12.5 mg, administered: 05/13/2016 2:36:00 PM Dilaudid [IVP] IVP 1 mg, administered: 05/13/2016 3:02:00 PM IV NS IV Fluids bolus 1000 mL wide open, then 1000 mL/hr, administered: 05/13/2016 3:51:00 PM KCL [IVPB] IVPB bolus 0, then 20 meq 50 mL/hr, administered: 05/13/2016 4:02:00 PM Dilaudid [IVP] IVP 0.5 mg, administered: 05/13/2016 5:08:00 PM The following Medications were prescribed to the patient: None.
--- NOTE | 2016-05-13 18:23 | ED DISCHARGE INSTRUCTIONS ---
Patient: GLADIS CHVÁEZ General Instructions [facility] VisitID: [id number] [address] [place] [address] 30y, F Registration Date/Time: 05/13/2016 Pelvic FX Left upper/lower Rami Fall down 14 stairs ETOH Hypokalemia. (Electronically signed by Yodit Alexander P.A.-C 05/13/2016 17:56)
--- NOTE | 2016-05-13 18:23 | ED MED RECONCILIATION SUMMARY ---
Patient: GLADIS CHÁVEZ Medication Reconciliation Report [facility] VisitID: [id number] [address] [place] [address] 30y, F Registration Date/Time: 05/13/2016 Weight: 54.4 kg Height/Length: 64 in. BMI: 20.6 ALLERGIES: None The patient's Home Medications are listed below: NONE. The source(s) of the original Home Medication information: patient The following Medications were given to the patient in the Emergency Department: Dilaudid [IVP] IVP 0.5 mg, administered: 05/13/2016 2:30:00 PM PHENERGAN [IVP] IVP 12.5 mg, administered: 05/13/2016 2:36:00 PM Dilaudid [IVP] IVP 1 mg, administered: 05/13/2016 3:02:00 PM IV NS IV Fluids bolus 1000 mL wide open, then 1000 mL/hr, administered: 05/13/2016 3:51:00 PM KCL [IVPB] IVPB bolus 0, then 20 meq 50 mL/hr, administered: 05/13/2016 4:02:00 PM Dilaudid [IVP] IVP 0.5 mg, administered: 05/13/2016 5:08:00 PM The following Medications were prescribed to the patient: None.
--- NOTE | 2016-05-13 18:23 | ED DISCHARGE INSTRUCTIONS ---
Patient: GLADIS CHÁVEZ General Instructions [facility] VisitID: [id number] [address] [place] [address] 30y, F Registration Date/Time: 05/13/2016 Pelvic FX Left upper/lower Rami Fall down 14 stairs ETOH Hypokalemia. (Electronically signed by Ydoit Alexander P.A.-C 05/13/2016 17:56)
== END 2016-05-13 18:10 | disposition short-term general hospital (02) ==
LOC: ED SRH 13:52
DX: S32.502A Unspecified fracture of left pubis, initial encounter for closed fracture (principal); F10.10 Alcohol abuse, uncomplicated; E87.6 Hypokalemia; W10.9XXA Fall (on) (from) unspecified stairs and steps, initial encounter; Y93.9 Activity, unspecified; Y92.009 Unspecified place in unspecified non-institutional (private) residence as the place of occurrence of the external cause; Y99.9 Unspecified external cause status; F17.210 Nicotine dependence, cigarettes, uncomplicated
CPT/HCPCS: 83475; 90004; 90100; 90616; 90617; 92010; 92610; 92760; 92761; 92762; 92763; 92764; 92765; 92766; 92767; 92780; 93070; 94001; 94060; 95059; 97000